=== PATIENT | male | born 1980 | race Asian ===

== ENCOUNTER 2018-05-24 11:40 | Emergency (ER) | payer OTHER ==
[~2018-05-24] VITALS: Ht 165.1 cm; Wt 175.0 kg
[2018-05-24] MEDS ORDERED: CARBAMIDE PEROXIDE 6.5% 15 ML OTIC SOLUTION AS ONE (12:45)
[2018-05-24 14:19] VITALS: BP 152/92
[2018-05-24] MEDS ORDERED: IBUPROFEN 800 MG TABLET PO ONE (14:30)
== END 2018-05-24 14:30 | disposition home or self-care (01) ==
LOC: EMS 12:31
DX: H66.92 Otitis media, unspecified, left ear (principal); H61.22 Impacted cerumen, left ear; R03.0 Elevated blood-pressure reading, without diagnosis of hypertension